=== PATIENT | female | born 1995 | race Caucasian/White ===

== ENCOUNTER 2016-10-04 23:36 | Emergency (ER) | payer OTHER, MEDICAID ==
[2016-10-05 00:02] VITALS: BP 156/92
[2016-10-05 00:27] LABS: Basophils % (Auto) 0.5 % (0.0-1.8); Eosinophils % (Auto) 1.4 % (0.0-4.3); Hemoglobin 10.8 gm/dl (10.1-14.3); Mean Corpuscular HGB Conc 31 % (30-34); Mean Corpuscular Volume 84 fl (79-97); Platelet Count 302 K/mm3 (140-440); Red Blood Count 4.18 M/mm3 (3.65-5.03); Red Cell Distribution Width 14.5 % (13.2-15.2); White Blood Count 11.1 K/mm3 (4.5-11.0)
[2016-10-05 00:28] LABS: Mean Corpuscular Hemoglobin 26 pg (28-32)
[2016-10-05 04:04] LABS: Bacteria,Urine 1+ /HPF (Negative); Bilirubin,Urine NEG (Negative); Blood,Urine LG (Negative); Ketones,Urine NEG (Negative); Leukocyte Esterase,Urine NEG (Negative); Mucus,Urine FEW /HPF; Nitrite,Urine NEG (Negative); Protein,Urine <15 mg/dL mg/dL (Negative); Urobilinogen,Urine < 2.0 mg/dL (<2.0)
--- NOTE | 2016-10-07 21:54 | ED Elopement Review ---
ED Pt Elopement review - Results review Lab results: Laboratory Tests 10/05/16 10/05/16 10/05/16 00:09 00:09 00:09 WBC 11.1 H RBC 4.18 Hgb 10.8 Hct 35.0 MCV 84 MCH 26 L MCHC 31 RDW 14.5 Plt Count 302 Lymph % (Auto) 23.4 [place] % (Auto) 4.5 Eos % (Auto) 1.4 Baso % (Auto) 0.5 Lymph # 2.6 [place] # 0.5 Eos # 0.2 Baso # 0.1 Seg Neutrophils % 70.2 H Seg Neutrophils # 7.8 H HCG, Quant < 2 Urine Color Urine Turbidity Urine pH Ur Specific [place] Urine Protein Urine Glucose (UA) Urine Ketones Urine Blood Urine Nitrite Urine Bilirubin Urine Urobilinogen Ur Leukocyte Esterase Urine WBC (Auto) Urine RBC (Auto) U Epithel Cells (Auto) Urine Bacteria (Auto) Urine Mucus Blood Type A POSITIVE Antibody Screen TNR DEMIAN Antibody Screen Negative 10/05/16 03:29 WBC RBC Hgb Hct MCV MCH MCHC RDW Plt Count Lymph % (Auto) [place] % (Auto) Eos % (Auto) Baso % (Auto) Lymph # [place] # Eos # Baso # Seg Neutrophils % Seg Neutrophils # HCG, Quant Urine Color Straw Urine Turbidity Clear Urine pH 6.0 Ur Specific [place] 1.003 Urine Protein <15 mg/dl Urine Glucose (UA) Neg Urine Ketones Neg Urine Blood Lg Urine Nitrite Neg Urine Bilirubin Neg Urine Urobilinogen < 2.0 Ur Leukocyte Esterase Neg Urine WBC (Auto) 1.0 Urine RBC (Auto) 2.0 U Epithel Cells (Auto) 1.0 Urine Bacteria (Auto) 1+ Urine Mucus Few Blood Type Antibody Screen DEMIAN Antibody Screen - Call Back decision Pt Call Back Decision: No action required
== END 2016-10-05 00:59 | disposition left against medical advice (07) ==
LOC: ED 23:36
DX: N93.8 Other specified abnormal uterine and vaginal bleeding (principal); Z53.21 Procedure and treatment not carried out due to patient leaving prior to being seen by health care provider
CPT/HCPCS: 36415; 81001; 84702; 85025; 86850; 86900; 86901

== ENCOUNTER 2016-12-02 20:09 | Emergency (ER) | payer MEDICAID, OTHER ==
[2016-12-02 21:45] VITALS: BP 142/88
[2016-12-02 22:21] LABS: Anion Gap 18 mmol/L; Blood Urea Nitrogen 7 mg/dL (7-17); Calcium 8.8 mg/dL (8.4-10.2); Carbon Dioxide 23 mmol/L (22-30); Chloride 103.3 mmol/L (98-107); Glucose 90 mg/dL (65-100); Potassium 4.5 mmol/L (3.6-5.0); Sodium 140 mmol/L (137-145)
[2016-12-02 22:42] LABS: Basophils % (Auto) 0.4 % (0.0-1.8); Eosinophils % (Auto) 1.8 % (0.0-4.3); Hematocrit 39.3 % (30.3-42.9); Hemoglobin 12.3 gm/dl (10.1-14.3); Mean Corpuscular HGB Conc 31 % (30-34); Mean Corpuscular Volume 79 fl (79-97); Platelet Count 368 K/mm3 (140-440); Red Blood Count 4.99 M/mm3 (3.65-5.03); Red Cell Distribution Width 17.1 % (13.2-15.2)
[2016-12-02 22:47] LABS: Mean Corpuscular Hemoglobin 25 pg (28-32)
== END 2016-12-03 00:10 | disposition left against medical advice (07) ==
LOC: ED 20:09
DX: R20.0 Anesthesia of skin (principal); Z53.21 Procedure and treatment not carried out due to patient leaving prior to being seen by health care provider
CPT/HCPCS: 36415; 80048; 84703; 85025

== ENCOUNTER 2017-03-13 10:58 | Emergency (ER) | payer MEDICAID ==
--- NOTE | 2017-03-13 11:24 | Emergency Department Report ---
Chief Complaint: Vaginal Bleeding Stated Complaint: VAGINAL DISCHARGE/MUCUS/BLOOD - HPI History of Present Illness: 22-year-old female past medical history hypertension presents with complaint of vaginal bleeding and lower abdominal cramping for 2 days. Patient currently has no care. Patient also complaining of sore throat and runny nose and malaise. - ROS Review of Systems: Currently last menstrual period 11/04/16 no care. URI symptoms 2-3 days, lower abdominal cramping and vaginal bleeding - Exam Vital Signs: Vital Signs 03/13/17 11:08 Temperature 98.3 F Pulse Rate 104 H Respiratory 20 Rate Blood Pressure 133/79 O2 Sat by Pulse 98 Oximetry Physical Exam: Some tonsillar erythema, obese abdomen MSE screening note: Focused history and physical exam performed. Due to findings the following was ordered: Screening Assessment/Plan/Differential Dx: Vaginal bleeding and cramping during , URI symptoms 1- This initial assessment/diagnostic orders/clinical plan/ treatment(s) is/are subject to change based on pt's health status, clinical progression and re- assessment by fellow clinical providers in the ED. Further treatment and workup at subsequent clinical provers discretion. Patient/guardians urged not to elope from ED as their condition may be serious if not clinically assessed and managed. 2-flu and strep swab sent 3-ultrasound transvaginal for , hCG level, basic labs,T&S 4-pt to be seen in main ED ED Disposition for MSE Condition: Stable
[2017-03-13 11:51] LABS: Basophils % (Auto) 0.5 % (0.0-1.8); Eosinophils % (Auto) 0.2 % (0.0-4.3); Hematocrit 36.1 % (30.3-42.9); Hemoglobin 11.8 gm/dl (10.1-14.3); Mean Corpuscular HGB Conc 33 % (30-34); Mean Corpuscular Volume 78 fl (79-97); Platelet Count 331 K/mm3 (140-440); Red Blood Count 4.61 M/mm3 (3.65-5.03); Red Cell Distribution Width 17.9 % (13.2-15.2); White Blood Count 11.9 K/mm3 (4.5-11.0)
[2017-03-13 12:00] LABS: Mean Corpuscular Hemoglobin 26 pg (28-32)
[2017-03-13 12:06] LABS: Anion Gap 21 mmol/L; BUN/Creatinine Ratio 23; Blood Urea Nitrogen 7 mg/dL (7-17); Calcium 8.9 mg/dL (8.4-10.2); Carbon Dioxide 18 mmol/L (22-30); Chloride 101.8 mmol/L (98-107); Glucose 90 mg/dL (65-100); Potassium 4.2 mmol/L (3.6-5.0); Sodium 137 mmol/L (137-145)
[2017-03-13 12:34] LABS: Bilirubin,Urine NEG (Negative); Blood,Urine NEG (Negative); Ketones,Urine NEG (Negative); Leukocyte Esterase,Urine NEG (Negative); Nitrite,Urine NEG (Negative); Protein,Urine <15 mg/dL mg/dL (Negative); Urobilinogen,Urine < 2.0 mg/dL (<2.0)
--- NOTE | 2017-03-13 13:38 | Emergency Department Report ---
HPI - General Chief Complaint: Vaginal Bleeding Time Seen by Provider: 03/13/17 12:19 - HPI HPI: This is a 22-year-old female presents to the emergency department with 2 complaints. First, the patient says that she has been having a few days of some bloody mucousy discharge and this is even more concerning to her as she is currently . She says up with this she is with 5 live children. She has not seen the SENIOR FACILITIES MANAGER yet but plans to follow up with [facility]. She is taking vitamins but has not taken anything specifically for her symptoms. Patient also complains that she developed some midsternal, nonradiating, sharp chest pains that started while she was in court today. She denies any shortness of breath, back pain, fever, nausea, vomiting or diaphoresis. She says that she has a history of some hypertension. No recent travel or sick contacts at home. ED Past Medical Hx - Past Medical History Previous Medical History?: Yes Hx Hypertension: Yes (with preg) Hx Heart Attack/AMI: No Hx Congestive Heart Failure: No Hx Diabetes: No Hx Deep Vein Thrombosis: No Hx Liver Disease: No Hx Renal Disease: No Hx Sickle Cell Disease: No Hx Seizures: No Hx Asthma: No Hx COPD: No Hx HIV: No Additional medical history: Vaginal dleivery x 5 - Surgical History Past Surgical History?: No - Social History Smoking Status: Former Smoker - Medications Home Medications: Home Medications Medication Instructions Recorded Confirmed Last Taken Type Pnv with Ca,No.72/Iron/FA 1 tab PO DAILY 10/08/13 10/07/15 10/04/15 History [ Plus Tablet] Ferrous Sulfate [Feosol 325 MG tab] 325 mg PO BID #60 tablet 10/13/13 10/07/15 3 Weeks Ago Rx ~09/13/15 Ibuprofen [Motrin 600 MG tab] 600 mg PO Q6H #30 tablet 10/13/13 10/07/15 2 Weeks Ago Rx ~09/20/15 Vit-Fe Fumar-FA [ 1 each PO QDAY #30 tablet 10/13/13 10/07/15 10/04/15 Rx Vitamin] Butalb/Acetamin/Caff 50-325-40 1 tab PO Q6H PRN #20 tablet 07/17/14 07/07/16 Unknown Rx [Fioricet] Nitrofurantoin [place]/M-Cryst 100 mg PO Q12HR 5 Days capsule 03/06/14 10/07/15 3 Days Ago Rx [Macrobid] ~10/01/15 ED Review of Systems ROS: Stated complaint: VAGINAL DISCHARGE/MUCUS/BLOOD Other details as noted in HPI Comment: All other systems reviewed and negative Constitutional: denies: chills, fever Eyes: denies: eye pain, eye discharge, vision change ENT: denies: ear pain, throat pain Respiratory: denies: cough, shortness of breath, wheezing Cardiovascular: chest pain. denies: palpitations Gastrointestinal: denies: abdominal pain, nausea, diarrhea Genitourinary: discharge. denies: dysuria Musculoskeletal: denies: back pain, joint swelling, arthralgia Skin: denies: rash, lesions Neurological: denies: headache, weakness, paresthesias Physical Exam - Physical Exam Vital Signs: Vital Signs 03/13/17 11:08 Temperature 98.3 F Pulse Rate 104 H Respiratory 20 Rate Blood Pressure 133/79 O2 Sat by Pulse 98 Oximetry Physical Exam: GENERAL: The patient is well-developed well-nourished. HENT: Normocephalic. Atraumatic. Patient has moist mucous membranes. EYES: Extraocular motions are intact. Pupils equal reactive to light bilaterally. NECK: Supple. Trachea is midline. CHEST/LUNGS: Clear to auscultation. There is no respiratory distress noted. There is some reproducible chest pain to palpation of the chest. HEART/CARDIOVASCULAR: Regular. There is no tachycardia. There is no murmur. ABDOMEN: Abdomen is soft, nontender. Patient has normal bowel sounds. There is no abdominal distention. SKIN: Skin is warm and dry. NEURO: The patient is awake, alert, and oriented. The patient is cooperative. The patient has no focal neurologic deficits. The patient has normal speech. MUSCULOSKELETAL: There is no tenderness or deformity. There is no limitation range of motion. There is no evidence of acute injury. : There is no vaginal bleeding or discharge seen in the vaginal vault. ED Course Vital Signs 03/13/17 11:08 Temperature 98.3 F Pulse Rate 104 H Respiratory 20 Rate Blood Pressure 133/79 O2 Sat by Pulse 98 Oximetry ED Medical Decision Making - Lab Data Result diagrams: 03/13/17 11:35 03/13/17 11:35 - EKG Data -: EKG Interpreted by Me EKG shows normal: sinus rhythm, axis, intervals, QRS complexes, ST-T waves Rate: normal - EKG Data When compared to previous EKG there are: previous EKG unavailable Interpretation: normal EKG - Radiology Data Radiology results: report reviewed OB ULTRASOUND History vaginal bleeding . Technique: Transabdominal ultrasound with Doppler interrogation. Gestation: Single Position: Transverse with head to maternal right Amniotic Fluid: Within normal limits Placenta: Posterior. Complete previa is identified. Placental Grade: 1 Heart Rate: 145 BPM Cervical length: 3.3 cm (Normal > 3 cm) HC/AC Ratio: 1.2 Cephalic Index: 76.6 Estimated Weight: 118 grams LMP: 11/04/16 Clinical age = 18 w 3 d EDC: 08/11/17 US Gest. Age = 15 w 2 d EDC: 09/02/17 IMPRESSION: Viable, single intrauterine as described. Placenta previa is identified. Transcribed By: TTR Dictated By: OMID FINLEY JR, MD Electronically Authenticated By: OMID FINLEY JR, MD Signed Date/Time: 03/13/17 1514 - Medical Decision Making 22-year-old female presents with a complaint of some bloody mucousy discharge while . She also complains of some chest pain that started just prior to presentation. The chest pain is reproducible and most likely consistent with costochondritis. EKG is normal without ST elevation MD, ischemia or dysrhythmia. It also was improved from earlier in the day. The patient was and since it appears consistent with costochondritis, I decided not to do a chest x-ray on her. Also, other the patient being , she is low suspicion for a pulmonary embolism. There is no hypoxia, only mild transient tachycardia and she is low on the well's score criteria. She had an ultrasound that showed a live intrauterine but did show a placenta previa. I discussed this with the patient and she knows that she is to follow-up with the SENIOR FACILITIES MANAGER. Vital signs stable ED course. Labs are otherwise unremarkable. Wet prep negative for BV and trichomoniasis. We will wait on the gonorrhea and chlamydia but there is low suspicion as patient does not have any significant discharge. - Differential Diagnosis costochondritis, , miscarriage, BV, trichomoniasis Critical Care Time: No Critical care attestation.: If time is entered above; I have spent that time in minutes in the direct care of this critically ill patient, excluding procedure time. ED Disposition Clinical Impression: Costochondritis, Threatened miscarriage Qualifiers: Weeks of gestation: 13 weeks Qualified Code(s): Z3A.13 - 13 weeks gestation of Placenta previa Qualifiers: Trimester: first trimester Qualified Code(s): O44.01 - Complete placenta previa NOS or without hemorrhage, first trimester Disposition: TO HOME OR SELFCARE Is pt being admited?: No Condition: Stable Instructions: Threatened Miscarriage (ED), (ED), Costochondritis (ED) Additional Instructions: Please follow-up with your SENIOR FACILITIES MANAGER service in the next few days. Return to the emergency department with any vaginal bleeding, sharp and/or severe abdominal/ pelvic pain, any development of fever, any worsening of your chest pains or any acute distress. Referrals: [facility] [Provider Group] - 3-5 Days Time of Disposition: 17:30
--- NOTE | 2017-03-13 15:18 | Ultrasound Report ---
OB ULTRASOUND History vaginal bleeding . Technique: Transabdominal ultrasound with Doppler interrogation. Gestation: Single Position: Transverse with head to maternal right Amniotic Fluid: Within normal limits Placenta: Posterior. Complete previa is identified. Placental Grade: 1 Heart Rate: 145 BPM Cervical length: 3.3 cm (Normal > 3 cm) HC/AC Ratio: 1.2 Cephalic Index: 76.6 Estimated Weight: 118 grams LMP: 11/04/16 Clinical age = 18 w 3 d EDC: 08/11/17 US Gest. Age = 15 w 2 d EDC: 09/02/17 IMPRESSION: Viable, single intrauterine as described. Placenta previa is identified.
[2017-03-13 16:39] VITALS: BP 124/81
== END 2017-03-13 17:44 | disposition home or self-care (01) ==
LOC: ED 10:58
DX: O20.0 Threatened abortion (principal); O44.01 Complete placenta previa NOS or without hemorrhage, first trimester; M94.0 Chondrocostal junction syndrome [Tietze]; Z3A.13 13 weeks gestation of pregnancy; I10 Essential (primary) hypertension; Z87.891 Personal history of nicotine dependence
CPT/HCPCS: 36415; 76805; 80048; 81001; 84484; 84702; 85025; 86850; 86900; 86901; 87086; 87116; 87210; 87400; 87430; 87591; 93005; 93010

== ENCOUNTER 2017-05-26 16:33 | Outpatient (CLI) | payer MEDICAID ==
[2017-05-26 16:54] VITALS: BP 138/73
[2017-05-26] MEDS ORDERED: LACTATED RINGERS 500 ML IV ONE (17:00)
[2017-05-26] MEDS ORDERED: LACTATED RINGERS 1,000 ML IV SCH (18:00)
[2017-05-26 18:17] LABS: Bilirubin,Urine NEG (Negative); Blood,Urine NEG (Negative); Color,Urine Yellow (Yellow); Protein,Urine <15 mg/dL mg/dL (Negative); RBC,Urine < 1.0 /HPF (0.0-6.0); WBC,Urine < 1.0 /HPF (0.0-6.0)
--- NOTE | 2017-05-26 20:49 | Ultrasound Report ---
FINAL REPORT EXAM: US OB CLINICAL INDICATIONS: cervical length FINDINGS: Real-time ultrasound of the pelvis was performed with large attention to the cervix. Cervical length was 3.4 cm. cardiac activity is present at 145 beats per minute. IMPRESSION: CERVICAL LENGTH 3.4 CM
== END 2017-05-26 19:50 | disposition home or self-care (01) ==
LOC: TRG 16:33
PROVIDERS: ATTEND Obstetrics & Gynecology
DX: O47.02 False labor before 37 completed weeks of gestation, second trimester (principal); Z3A.26 26 weeks gestation of pregnancy
CPT/HCPCS: 59025; 76815; 81001; 96360; J7120

== ENCOUNTER 2017-06-08 11:29 | Outpatient (CLI) | payer MEDICAID ==
[2017-06-08] MEDS ORDERED: CELESTONE SOLUSPAN IM ONE (11:50)
== END 2017-06-08 12:00 | disposition home or self-care (01) ==
LOC: TRG 11:29
PROVIDERS: ATTEND Obstetrics & Gynecology
DX: O47.02 False labor before 37 completed weeks of gestation, second trimester (principal); Z3A.27 27 weeks gestation of pregnancy
CPT/HCPCS: 96372; J0702

== ENCOUNTER 2017-06-09 12:09 | Outpatient (CLI) | payer MEDICAID ==
[2017-06-09] MEDS ORDERED: LACTATED RINGERS 500 ML IV ONE (12:19)
[2017-06-09 12:51] VITALS: BP 124/66
[2017-06-09] MEDS ORDERED: CELESTONE SOLUSPAN IM ONE (13:00)
== END 2017-06-09 13:22 | disposition home or self-care (01) ==
LOC: TRG 12:09
PROVIDERS: ATTEND Obstetrics & Gynecology
DX: O47.02 False labor before 37 completed weeks of gestation, second trimester (principal); Z3A.27 27 weeks gestation of pregnancy
CPT/HCPCS: 59025; 96372; J0702

== ENCOUNTER 2017-07-01 11:47 | Outpatient (CLI) | payer MEDICAID ==
[2017-07-01] MEDS ORDERED: LACTATED RINGERS 500 ML IV ONE (11:55)
[2017-07-01 12:09] VITALS: BP 119/65
[2017-07-01 12:47] LABS: Bilirubin,Urine NEG (Negative); Blood,Urine NEG (Negative); Color,Urine Amber (Yellow); Mucus,Urine FEW /HPF
--- NOTE | 2017-07-01 15:22 | Ultrasound Report ---
FINAL REPORT EXAM: US OB BPP WO NON-STRESS HISTORY: SROM/fall TECHNIQUE: Sonographic biophysical profile performed PRIORS: None. FINDINGS: There is a single live intrauterine of approximately 31 weeks 0 days according to the provided REBEL of 09/02/2017. position is cephalic. The placenta is posterior. Amniotic fluid volume is normal with MARIAN of 13.0 cm. cardiac activity is measured at 144 bpm. biophysical profile: breathing movements: 2 Gross body movements: 2 tone: 2 Amniotic fluid volume: 2 Score: 8 out of 8. IMPRESSION: Normal biophysical profile scoring 8 out of 8
--- NOTE | 2017-07-01 15:25 | Ultrasound Report ---
FINAL REPORT EXAM: US OB LIMITED HISTORY: SROM/fall TECHNIQUE: Limited obstetrical ultrasound performed. PRIORS: None. FINDINGS: There is a single live intrauterine . Gestational age is approximately 31 weeks 0 days according to REBEL of 09/02/2017. position is cephalic. Amniotic fluid volume is normal with MARIAN of 13.0 cm. Placenta is posterior. There is no placenta previa seen. There is no placental abruption seen. Survey of anatomy not performed. Cervical length not evaluated. IMPRESSION: No evidence of placental abruption seen. Single live intrauterine of approximately 31 weeks 0 days with corresponding REBEL of 09/02/2017.
== END 2017-07-01 15:04 | disposition home or self-care (01) ==
LOC: TRG 11:47
PROVIDERS: ATTEND Obstetrics & Gynecology
DX: O47.03 False labor before 37 completed weeks of gestation, third trimester (principal); O26.893 Other specified pregnancy related conditions, third trimester; W19.XXXA Unspecified fall, initial encounter; Z3A.31 31 weeks gestation of pregnancy; Y93.89 Activity, other specified; Y92.89 Other specified places as the place of occurrence of the external cause; Y99.8 Other external cause status
CPT/HCPCS: 59025; 76815; 76819; 81001

== ENCOUNTER 2017-08-07 21:46 | Outpatient (CLI) | payer MEDICAID ==
[2017-08-08] MEDS ORDERED: VISTARIL PO ONE (00:43)
== END 2017-08-08 00:43 | disposition home or self-care (01) ==
LOC: TRG 21:46
PROVIDERS: ATTEND Obstetrics & Gynecology
DX: O47.03 False labor before 37 completed weeks of gestation, third trimester (principal); Z3A.36 36 weeks gestation of pregnancy
CPT/HCPCS: 59025; Q0177

== ENCOUNTER 2017-08-10 15:46 | Outpatient (CLI) | payer MEDICAID ==
[2017-08-10 16:48] VITALS: BP 118/61
== END 2017-08-10 17:35 | disposition home or self-care (01) ==
LOC: TRG 15:46
PROVIDERS: ATTEND Obstetrics & Gynecology
DX: O46.93 Antepartum hemorrhage, unspecified, third trimester (principal); O62.9 Abnormality of forces of labor, unspecified; Z3A.36 36 weeks gestation of pregnancy
CPT/HCPCS: 59025

== ENCOUNTER 2017-08-12 10:57 | Inpatient (IN) | payer MEDICAID ==
[2017-08-12] MEDS ORDERED: LACTATED RINGERS 2,000 ML ONE (12:53)
[2017-08-12] MEDS ORDERED: Fluarix Quad 2017-2018(36 MOS+ IM ONE (13:29)
[2017-08-12] MEDS ORDERED: XYLOCAINE 2% INFILTRATI ONE (13:50)
[2017-08-12] MEDS ORDERED: ZOFRAN IV PRN ×2 (13:50→17:55)
[2017-08-12] MEDS ORDERED: BRETHINE IVP PRN (13:50)
[2017-08-12] MEDS ORDERED: MINERAL OIL PO PRN (13:50)
[2017-08-12] MEDS ORDERED: PHENERGAN PO PRN ×2 (13:50→17:55)
[2017-08-12] MEDS ORDERED: BRETHINE SUB-Q PRN (13:50)
[2017-08-12] MEDS ORDERED: ePHEDrine SULFATE IV PRN ×2 (13:50→15:01)
[2017-08-12] MEDS ORDERED: STADOL IV PRN (13:50)
[2017-08-12] MEDS ORDERED: LACTATED RINGERS 1,000 ML IV SCH (14:00)
[2017-08-12] MEDS ORDERED: PITOCin/NS 30 UNIT/500ML 30 UNITS/500 ML BAG IV SCH (14:00)
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
[2017-08-12 14:26] LABS: Hematocrit 37.7 % (30.3-42.9); Hemoglobin 11.9 gm/dl (10.1-14.3); Mean Platelet Volume 9.1 fl (6-12); Red Blood Count 4.43 M/mm3 (3.65-5.03); Red Cell Distribution Width 18.2 % (13.2-15.2)
[2017-08-12] MEDS ORDERED: NARCAN 2 MG/2 ML IV PRN (15:01)
[2017-08-12] MEDS ORDERED: fentaNYL-BUPIV 2 MCG/ML-0.125% 200 MCG/100 ML BAG EPIDURAL SCH (16:00)
[2017-08-12] MEDS: PITOCin/NS 20 UNIT/1000ML DRIP 20 UNITS/1,000 ML BAG IV SCH ×2 (17:45→19:21)
[2017-08-12] MEDS ORDERED: LANSINOH TP PRN (17:55)
[2017-08-12] MEDS ORDERED: TUCKS PAD TP PRN (17:55)
[2017-08-12] MEDS ORDERED: MILK OF MAGNESIA PO PRN (17:55)
[2017-08-12] MEDS ORDERED: TYLENOL PO PRN (17:55)
[2017-08-12] MEDS ORDERED: BENADRYL PO PRN (17:55)
[2017-08-12] MEDS ORDERED: DULCOLAX PR PRN (17:55)
[2017-08-12] MEDS ORDERED: SODIUM CHLORIDE FLUSH SYRINGE 10 ML IV NR (18:00)
--- NOTE | 2017-08-12 18:03 | Procedure Note ---
OB Delivery Note - Delivery Date of Delivery: 08/12/17 (17:40) Surgeon: JANET DE LEON (PRISCILLA) Estimated blood loss: 100cc - Vaginal Delivery presentation: vertex Delivery position: OA Intrapartum events: none Delivery induction: none Delivery augmentation: pitocin Delivery monitor: external FHT, external uterine Route of delivery: Delivery placenta: spontaneous Delivery cord: nuchal cord (x1 tight, body cord loose), 3 umbilical vessels Episiotomy: none Delivery laceration: none Anesthesia: epidural Delivery comments: viable male infant GISELL position, tight nuchal x1, loose body cord, delivered intact via somersault maneuver, over intact perineum under epidural anesthesia at 17:40. Infant placed on mothers abdomen. Delayed cord clamping. Cord then cut by female family member at bedside. Spontaneous [place] delivery of intact placenta at 17:46. 3VC. No tears or lacerations. FF@U-2. Bleeding small. EBL 100. and mother left in stable condition. - Infant A at 1 minute: 8 at 5 minutes: 9 (2707 grams, 5lbs 15oz) Infant Gender: Male
[2017-08-12] MEDS: MOTRIN PO SCH (19:03)
[2017-08-13] MEDS: MOTRIN PO SCH ×3 (01:58→20:49)
[2017-08-13 06:20] LABS: Hematocrit 29.2 % (30.3-42.9); Hemoglobin 9.9 gm/dl (10.1-14.3)
[2017-08-13] MEDS: NORCO 5/325 PO PRN (08:50)
--- NOTE | 2017-08-13 10:35 | Progress Note ---
Assessment and Plan A: PP Day #1 Stable P: Follow Routine orders Depo Provera prior to discharge Plans Tubal D/C home today RTO in 3 Weeks Subjective - Subjective Date of service: 08/13/17 Patient reports: appetite normal, voiding normally, pain well controlled, flatus , bowel movement, ambulating normally [place]: doing well, bottle feeding Objective - Vital Signs Latest vital signs: Vital Signs Temp Pulse Resp BP BP Pulse Ox 08/13/17 08:30 97.8 F 80 18 115/63 98 08/13/17 03:41 98.4 F 86 18 124/53 08/13/17 00:00 98.9 F 84 18 108/57 08/12/17 20:50 98.2 F 96 H 18 114/57 08/12/17 19:23 98.2 F 88 18 113/65 113/65 08/12/17 18:31 100 H 84 08/12/17 18:26 87 100 08/12/17 18:21 93 H 100 08/12/17 18:20 85 101/61 08/12/17 18:16 85 100 08/12/17 18:11 87 114/60 100 08/12/17 18:07 97.8 F 18 08/12/17 18:06 103 H 100 08/12/17 18:01 109 H 100 08/12/17 17:56 112 H 100 08/12/17 17:51 105 H 100 08/12/17 17:50 99 H 94 08/12/17 17:48 100 H 130/60 08/12/17 17:41 104 H 83 L 08/12/17 17:36 97 H 92 08/12/17 17:31 110 H 100 08/12/17 17:30 111 H 119/61 87 08/12/17 17:26 100 H 100 08/12/17 17:21 95 H 100 08/12/17 17:18 103 H 76 L 08/12/17 17:16 99 H 100 08/12/17 17:11 105 H 100 08/12/17 17:06 91 H 100 08/12/17 17:01 89 100 08/12/17 16:56 102 H 98 08/12/17 16:51 85 100 08/12/17 16:46 79 99 08/12/17 16:41 112 H 99 08/12/17 16:38 80 125/81 0518 16:36 93 H 100 18 16:31 107 H 98 18 16:26 112 H 98 18 16:21 105 H 98 18 16:17 86 113/56 18 16:16 99 H 97 08/12/17 16:15 93 H 153/62 08/12/17 16:12 96 H 102/48 08/12/17 16:11 104 H 98/47 87 08/12/17 16:07 116 H 126/53 08/12/17 16:06 94 H 92 08/12/17 16:03 87 121/60 08/12/17 16:02 91 H 94 08/12/17 16:01 108 H 123/58 0 L 08/12/17 15:20 92 H 97 08/12/17 15:18 102 H 94 08/12/17 15:14 96 H 96 08/12/17 15:09 87 98 08/12/17 15:04 80 98 08/12/17 14:59 81 97 18 14:54 80 96 08/12/17 14:49 80 97 18 14:44 87 97 18 14:39 88 97 08/12/17 14:34 71 96 08/12/17 14:29 78 98 18 14:24 89 100 18 14:19 99 H 100 18 14:14 109 H 100 08/12/17 14:09 98 H 100 08/12/17 14:04 105 H 99 08/12/17 13:57 97 H 100 18 13:52 88 100 18 13:47 89 99 0518 13:42 94 H 100 18 13:37 91 H 100 0518 13:32 90 100 18 13:27 96 H 128/61 100 0518 13:22 97.8 F 80 20 128/61 100 Intake and Output 05//18 05/14/18 05/1418 22:59 06:59 14:59 Intake Total 156.25 240 Output Total 150 1000 Balance 6.25 -760 Intake: IV 156.25 PITOCin/NS 20 UNIT/1000ML 156.25 DRIP 20 units In 1,000 ml @ 125 mls/hr IV DIRECT SHANTA Rx#:[id number] Oral 240 Output: Urine 150 1000 Void 150 1000 Other: Total, Intake Amount 240 Total, Output Amount 150 600 # Voids Void 3 Estimated Blood Loss 100 - Exam Breasts: Present: normal Cardiovascular: Present: Regular rate Lungs: Present: Clear to auscultation, Normal air movement Abdomen: Present: normal appearance, soft, normal bowel sounds Uterus: Present: normal, firm, fundal height below umbilicus Extremities: Present: normal - Labs Labs: Abnormal lab results 08/12/17 08/13/17 Range/Units 12:55 05:46 WBC 12.5 H (4.5-11.0) K/mm3 Hgb 9.9 L (10.1-14.3) gm/dl Hct 29.2 L D (30.3-42.9) % MCH 27 L (28-32) pg RDW 18.2 H (13.2-15.2) %
--- NOTE | 2017-08-13 10:36 | Discharge Summary ---
Providers - Providers Date of Admission: 08/12/17 11:36 Date of discharge: 08/13/17 Attending physician: ZANE STEVENSON MD Primary care physician: ZANE STEVENSON MD Hospitalization Reason for admission: active labor Delivery: Episiotomy: none Laceration: none Other procedures: none complications: none Discharge diagnosis: IUP at term delivered [place] baby: male Condition at discharge: Good Disposition: DC-01 TO HOME OR SELFCARE Plan - Provider Discharge Summary Activity: routine, no sex for 6 weeks, no heavy lifting 4 weeks, no strenuous exercise Diet: routine Instructions: routine Additional instructions: [] Smoking cessation referral if applicable(refer to patient education folder for contact #) [] Refer to [facility]'s [facility] Booklet Call your doctor immediately for: * Fever > 100.5 * Heavy vaginal bleeding ( >1 pad per hour) * Severe persistent headache * Shortness of breath * Reddened, hot, painful area to leg or breast * Drainage or odor from incision. * Keep incision clean and dry at all times and follow doctor's instructions regarding bathing/showering - Follow up plan Follow up: ZANE STEVENSON MD [Primary Care Provider] - 09/03/17
[2017-08-13] MEDS ORDERED: DEPO-PROVERA (CONTRACEPTION) IM ONE (11:32)
[2017-08-13 19:34] LABS: Benzodiazepines Screen,Urine PRESUMPTIVE NEGATIVE; Cannabinoid Screen,Urine PRESUMPTIVE NEGATIVE; Cocaine Screen,Urine PRESUMPTIVE NEGATIVE; Methadone Screen,Urine PRESUMPTIVE NEGATIVE; Opiate Screen,Urine PRESUMPTIVE NEGATIVE
[2017-08-13 19:58] LABS: Amphetamine Screen,Urine PRESUMPTIVE POSITIVE
[2017-08-14] MEDS: MOTRIN PO SCH ×2 (04:01→11:43)
[2017-08-14] MEDS: NORCO 5/325 PO PRN ×2 (05:33→11:44)
[2017-08-14 18:25] VITALS: BP 128/80
== END 2017-08-14 18:36 | disposition home or self-care (01) | DRG 774 ==
LOC: TRG 10:57 → LD 11:36 → OB 21:12
PROVIDERS: ADMIT Obstetrics & Gynecology; ATTEND Obstetrics & Gynecology
PROC: 10E0XZZ Delivery of Products of Conception, External Approach (ICD-10-PCS; principal; 2017-08-12)
PROC: 3E0R3BZ Introduction of Anesthetic Agent into Spinal Canal, Percutaneous Approach (ICD-10-PCS; 2017-08-12)
PROC: 00HU33Z Insertion of Infusion Device into Spinal Canal, Percutaneous Approach (ICD-10-PCS; 2017-08-12)
PROC: 3E0234Z Introduction of Serum, Toxoid and Vaccine into Muscle, Percutaneous Approach (ICD-10-PCS; 2017-08-12)
DX: O69.1XX0 Labor and delivery complicated by cord around neck, with compression, not applicable or unspecified (principal); O98.32 Other infections with a predominantly sexual mode of transmission complicating childbirth; O99.214 Obesity complicating childbirth; E66.01 Morbid (severe) obesity due to excess calories; Z3A.37 37 weeks gestation of pregnancy; Z37.0 Single live birth; Z64.1 Problems related to multiparity; Z68.43 Body mass index [BMI] 50.0-59.9, adult; Z23 Encounter for immunization; A60.00 Herpesviral infection of urogenital system, unspecified; O16.4 Unspecified maternal hypertension, complicating childbirth
CPT/HCPCS: 36415; 80307; 85014; 85018; 85027; 86592; 86850; 86900; 86901; 90686; J0595; J1050; J2590; J7120

== ENCOUNTER 2017-08-15 10:53 | Emergency (ER) | payer MEDICAID ==
[2017-08-15 11:49] VITALS: BP 124/78
== END 2017-08-15 14:15 | disposition left against medical advice (07) ==
LOC: ED 10:53
DX: R51 Headache (principal); Z87.891 Personal history of nicotine dependence; Z53.21 Procedure and treatment not carried out due to patient leaving prior to being seen by health care provider

== ENCOUNTER 2017-10-25 15:56 | Emergency (ER) | payer MEDICAID, OTHER ==
--- NOTE | 2017-10-25 16:34 | Emergency Department Report ---
ED General Adult HPI - General Chief complaint: Altered Mental Status Stated complaint: ALTERED MENTAL STATE Time Seen by Provider: 10/25/17 16:15 Source: patient, EMS Mode of arrival: Stretcher Limitations: Altered Mental Status - History of Present Illness Initial comments: [facility] for altered mental status. Patient states she was arrested today for a domestic issue and prior to [facility] to the [facility] she became very emotional and states when she got out of the police car she passed out. Patient denies any chest pain, abdominal pain, or headache. Patient states she feels normal now. -: Sudden Radiation: non-radiation Severity scale (0 -10): 0 Consistency: now resolved Improves with: none Worsens with: none Associated Symptoms: denies other symptoms Treatments Prior to Arrival: none - Related Data Home Medications Medication Instructions Recorded Confirmed Last Taken Aspirin [Aspirin BABY CHEW TAB] 81 mg PO DAILY 08/12/17 08/12/17 08/11/17 08:00 1 Labetalol HCl 100 tab PO BID 08/12/17 08/12/17 08/11/17 08:00 100 TAB Previous Rx's Medication Instructions Recorded Last Taken Type Vit-Fe Fumar-FA [ 1 each PO QDAY #30 tablet 10/13/13 08/11/17 08:00 Rx Vitamin] 1 EACH Allergies Allergy/AdvReac Type Severity Reaction Status Date / Time No Known Allergies Allergy Verified 08/23/14 14:08 ED Review of Systems ROS: Stated complaint: ALTERED MENTAL STATE Other details as noted in HPI Comment: All other systems reviewed and negative Constitutional: denies: chills, fever Eyes: denies: eye pain, eye discharge, vision change ENT: denies: ear pain, throat pain Respiratory: denies: cough, shortness of breath, wheezing Cardiovascular: denies: chest pain, palpitations Endocrine: no symptoms reported Gastrointestinal: denies: abdominal pain, nausea, diarrhea Genitourinary: denies: urgency, dysuria, discharge Musculoskeletal: denies: back pain, joint swelling, arthralgia Skin: denies: rash, lesions Neurological: denies: headache, weakness, paresthesias Psychiatric: denies: anxiety, depression Hematological/Lymphatic: denies: easy bleeding, easy bruising ED Past Medical Hx - Past Medical History Previous Medical History?: No Hx Hypertension: No Hx Heart Attack/AMI: No Hx Congestive Heart Failure: No Hx Diabetes: No Hx Deep Vein Thrombosis: No Hx Liver Disease: No Hx Renal Disease: No Hx Sickle Cell Disease: No Hx Seizures: No Hx Asthma: No Hx COPD: No Hx HIV: Yes Additional medical history: Vaginal dleivery x 6 - Social History Smoking Status: Unknown if ever smoked - Medications Home Medications: Home Medications Medication Instructions Recorded Confirmed Last Taken Type Vit-Fe Fumar-FA [ 1 each PO QDAY #30 tablet 10/13/13 08/12/17 08/11/17 08:00 Rx Vitamin] 1 EACH Aspirin [Aspirin BABY CHEW TAB] 81 mg PO DAILY 08/12/17 08/12/17 08/11/17 08:00 History 1 Labetalol HCl 100 tab PO BID 08/12/17 08/12/17 08/11/17 08:00 History 100 TAB ED Physical Exam - General Limitations: Altered Mental Status General appearance: alert, in no apparent distress, other (patient answers questions appropriately. Patient tells me she was born in [facility] moved to [place] in 2000. Patient is able to tell me her date of counting today month and year) - Head Head exam: Present: atraumatic, normocephalic - Eye Eye exam: Present: normal appearance, PERRL, EOMI - ENT ENT exam: Present: mucous membranes moist - Neck Neck exam: Present: normal inspection - Respiratory Respiratory exam: Present: normal lung sounds bilaterally. Absent: respiratory distress, wheezes, rales - Cardiovascular Cardiovascular Exam: Present: regular rate, normal rhythm. Absent: systolic murmur, diastolic murmur, rubs, gallop - GI/Abdominal GI/Abdominal exam: Present: soft, normal bowel sounds. Absent: distended, tenderness - Extremities Exam Extremities exam: Present: normal inspection - Back Exam Back exam: Present: normal inspection - Neurological Exam Neurological exam: Present: alert, oriented X3, CN II-XII intact, reflexes normal. Absent: motor sensory deficit - Psychiatric Psychiatric exam: Present: normal affect, normal mood - Skin Skin exam: Present: warm, dry, intact, normal color. Absent: rash - Other Other exam information: Patient is tearful on exam ED Course Vital Signs 10/25/17 10/25/17 16:45 16:50 Temperature 98.0 F 97.6 F Pulse Rate 104 H 106 H Respiratory 16 16 Rate Blood Pressure 128/85 116/68 [Right] O2 Sat by Pulse 100 Oximetry ED Medical Decision Making - Lab Data Result diagrams: 10/25/17 16:17 10/25/17 16:17 - EKG Data EKG shows normal: sinus rhythm Rate: tachycardia - EKG Data Interpretation: no acute changes - Medical Decision Making Discussed results with the patient Elevated white count is likely secondary to acute stress reaction Critical care attestation.: If time is entered above; I have spent that time in minutes in the direct care of this critically ill patient, excluding procedure time. ED Disposition Clinical Impression: Vasovagal episode, Acute stress reaction Disposition: DC-01 TO HOME OR SELFCARE Is pt being admited?: No Does the pt Need Aspirin: No Condition: Stable Instructions: Syncope (ED) Additional Instructions: Return if worse Referrals: PRIMARY CARE, [Primary Care Provider] - 3-5 Days HODA LOPEZ MD [Staff Physician] - 3-5 Days [facility] [Outside] - 3-5 Days Time of Disposition: 18:36
[2017-10-25 16:42] LABS: Basophils # (Auto) 0.1 K/mm3 (0.0-0.1); Basophils % (Auto) 0.5 % (0.0-1.8); Eosinophils # (Auto) 0.1 K/mm3 (0.0-0.4); Eosinophils % (Auto) 0.5 % (0.0-4.3); Hematocrit 36.9 % (30.3-42.9); Hemoglobin 11.5 gm/dl (10.1-14.3); Lymphocytes # (Auto) 3.1 K/mm3 (1.2-5.4); Lymphocytes % (Auto) 17.3 % (13.4-35.0); Mean Corpuscular HGB Conc 31 % (30-34); Mean Corpuscular Volume 81 fl (79-97); Monocytes # (Auto) 0.8 K/mm3 (0.0-0.8); Monocytes % (Auto) 4.3 % (0.0-7.3); Platelet Count 389 K/mm3 (140-440); Red Blood Count 4.55 M/mm3 (3.65-5.03); Red Cell Distribution Width 16.8 % (13.2-15.2)
[2017-10-25 16:43] LABS: Mean Corpuscular Hemoglobin 25 pg (28-32)
[2017-10-25 16:52] LABS: Alanine Aminotransferase 37 units/L (7-56); Albumin 4.2 g/dL (3.9-5); BUN/Creatinine Ratio 16; Blood Urea Nitrogen 8 mg/dL (7-17); Calcium 9.2 mg/dL (8.4-10.2); Hemolysis Index 28
--- NOTE | 2017-10-25 17:52 | Cat Scan Report ---
FINAL REPORT EXAM: CT HEAD/BRAIN WO CON HISTORY: Altered mental status TECHNIQUE: 2.5 millimeter axial images from the skullbase to the vertex. Comparison: None FINDINGS: There is no evidence of an acute intracranial process, intracranial hemorrhage or mass effect. The ventricles are normal size. The visualized portions of the orbits, paranasal and mastoid sinuses are unremarkable. There is no evidence of fracture. There is mild frontal scalp soft tissue swelling. IMPRESSION: 1. No evidence of an acute intracranial process, intracranial hemorrhage or mass effect. 2. Mild frontal scalp soft tissue swelling.
[2017-10-25 18:26] LABS: Bilirubin,Urine NEG (Negative); Blood,Urine NEG (Negative); Color,Urine Yellow (Yellow); Mucus,Urine FEW /HPF; Urobilinogen,Urine < 2.0 mg/dL (<2.0)
[2017-10-25 18:37] LABS: Benzodiazepines Screen,Urine PRESUMPTIVE NEGATIVE; Cannabinoid Screen,Urine PRESUMPTIVE NEGATIVE; Cocaine Screen,Urine PRESUMPTIVE NEGATIVE; Methadone Screen,Urine PRESUMPTIVE NEGATIVE; Opiate Screen,Urine PRESUMPTIVE NEGATIVE
[2017-10-25 19:04] LABS: Amphetamine Screen,Urine PRESUMPTIVE POSITIVE
[2017-10-25 19:08] VITALS: BP 124/67
== END 2017-10-25 19:15 | disposition home or self-care (01) ==
LOC: ED 15:56
DX: R55 Syncope and collapse (principal); F43.9 Reaction to severe stress, unspecified
CPT/HCPCS: 36415; 70450; 80053; 80307; 81001; 84443; 84703; 85025; 93005; 93010; 99285; G0480; 80320

== ENCOUNTER 2021-10-21 14:00 | Emergency (ER) | payer SELFPAY ==
[2021-10-21 14:43] VITALS: BP 135/60
[2021-10-21 16:03] LABS: Basophils % (Auto) 0.3 % (0.0-1.8); Eosinophils # (Auto) 0.1 K/mm3 (0.0-0.4); Eosinophils % (Auto) 0.5 % (0.0-4.3); Hemoglobin 13.2 gm/dl (10.1-14.3); Lymphocytes # (Auto) 2.5 K/mm3 (1.2-5.4); Lymphocytes % (Auto) 20.6 % (13.4-35.0); Mean Corpuscular HGB Conc 33 % (30-34); Mean Corpuscular Volume 87 fl (79-97); Monocytes # (Auto) 0.8 K/mm3 (0.0-0.8); Monocytes % (Auto) 6.6 % (0.0-7.3); Platelet Count 324 K/mm3 (140-440); Red Blood Count 4.61 M/mm3 (3.65-5.03); Red Cell Distribution Width 14.8 % (13.2-15.2)
[2021-10-21 16:22] LABS: Alanine Aminotransferase 16 units/L (7-56); Albumin 4.7 g/dL (3.9-5); Blood Urea Nitrogen 9 mg/dL (7-17); Calcium 9.2 mg/dL (8.4-10.2); Hemolysis Index 4
[2021-10-21 16:25] LABS: BUN/Creatinine Ratio 18
--- NOTE | 2021-10-21 17:12 | Emergency Department Report ---
ED General Adult HPI - General Chief complaint: Medical Clearance Stated complaint: HIGH BLOOD PRESSURE/DIZZY Source: patient Mode of arrival: Ambulatory Limitations: No Limitations - History of Present Illness Initial comments: Patient is a 26-year-old female with a history of morbid obesity, HIV and hypertension who presents to the ED with complaint of persistently elevated heart rate and palpitations after drinking energy drinks 6 hours ago. Patient also complains of persistent elevated blood pressure and admits that she has not taken her blood pressure medications in over 2 weeks. Patient denies fever, chills, nausea, vomiting, dizziness, syncope, shortness of breath, chest pain, neck pain, abdominal pain, back pain, neck pain, heavy lifting or diaphoresis or cough. MD Complaint: Elevated hypertension; palpitations -: hour(s) (8) Location: chest Radiation: non-radiation Severity scale (0 -10): 0 Consistency: constant Improves with: none Worsens with: none Associated Symptoms: denies other symptoms. denies: confusion, chest pain, cough, diaphoresis, fever/chills, headaches, loss of appetite, malaise, nausea/vomiting, rash, shortness of breath, syncope, weakness Treatments Prior to Arrival: none - Related Data Home Medications Medication Instructions Recorded Confirmed Last Taken Aspirin [Aspirin BABY CHEW TAB] 81 mg PO DAILY 08/12/17 08/12/17 08/11/17 08:00 1 Labetalol HCl 100 tab PO BID 08/12/17 08/12/17 08/11/17 08:00 100 TAB Previous Rx's Medication Instructions Recorded Last Taken Type Vit-Fe Fumar-FA [ 1 each PO QDAY #30 tablet 10/13/13 08/11/17 08:00 Rx Vitamin] 1 EACH Allergies Allergy/AdvReac Type Severity Reaction Status Date / Time No Known Allergies Allergy Verified 08/23/14 14:08 ED Review of Systems ROS: Stated complaint: HIGH BLOOD PRESSURE/DIZZY Other details as noted in HPI Constitutional: other (Elevated blood pressure). denies: chills, fever Eyes: denies: eye pain, eye discharge, vision change ENT: denies: ear pain, throat pain Respiratory: denies: cough, shortness of breath, wheezing Cardiovascular: palpitations. denies: chest pain Endocrine: no symptoms reported Gastrointestinal: denies: abdominal pain, nausea, vomiting, diarrhea Genitourinary: denies: urgency, dysuria, discharge Musculoskeletal: denies: back pain, joint swelling, arthralgia Skin: denies: rash, lesions Neurological: denies: headache, weakness, paresthesias Psychiatric: denies: anxiety, depression Hematological/Lymphatic: denies: easy bleeding, easy bruising ED Past Medical Hx - Past Medical History Previous Medical History?: Yes Hx Hypertension: Yes Hx Heart Attack/AMI: No Hx Congestive Heart Failure: No Hx Diabetes: No Hx Deep Vein Thrombosis: No Hx Liver Disease: No Hx Renal Disease: No Hx Sickle Cell Disease: No Hx Seizures: No Hx Asthma: No Hx COPD: No Hx HIV: Yes Additional medical history: Vaginal delivery x 6 - Social History Smoking Status: Unknown if ever smoked - Medications Home Medications: Home Medications Medication Instructions Recorded Confirmed Last Taken Type Vit-Fe Fumar-FA [ 1 each PO QDAY #30 tablet 10/13/13 08/12/17 08/11/17 08:00 Rx Vitamin] 1 EACH Aspirin [Aspirin BABY CHEW TAB] 81 mg PO DAILY 08/12/17 08/12/17 08/11/17 08:00 History 1 Labetalol HCl 100 tab PO BID 08/12/17 08/12/17 08/11/17 08:00 History 100 TAB ED Physical Exam - General Limitations: No Limitations General appearance: alert, in no apparent distress - Head Head exam: Present: atraumatic, normocephalic, normal inspection - Eye Eye exam: Present: normal appearance, PERRL, EOMI Pupils: Present: normal accommodation - ENT ENT exam: Present: normal exam, normal orophraynx, mucous membranes moist, TM's normal bilaterally, normal external ear exam - Neck Neck exam: Present: normal inspection, full ROM. Absent: tenderness - Respiratory Respiratory exam: Present: normal lung sounds bilaterally. Absent: respiratory distress, wheezes, rales, rhonchi, chest wall tenderness, accessory muscle use, decreased breath sounds, prolonged expiratory - Cardiovascular Cardiovascular Exam: Present: normal rhythm, tachycardia, normal heart sounds. Absent: systolic murmur, diastolic murmur, rubs, gallop - GI/Abdominal GI/Abdominal exam: Present: soft, normal bowel sounds. Absent: tenderness, guarding, rebound, hyperactive bowel sounds, mass - Extremities Exam Extremities exam: Present: normal inspection, full ROM, normal capillary refill. Absent: tenderness - Back Exam Back exam: Present: normal inspection, full ROM. Absent: tenderness, CVA tenderness (R), CVA tenderness (L), muscle spasm, paraspinal tenderness, vertebral tenderness - Neurological Exam Neurological exam: Present: alert, oriented X3, CN II-XII intact, normal gait, reflexes normal - Psychiatric Psychiatric exam: Present: normal affect, normal mood - Skin Skin exam: Present: warm, dry, intact, normal color. Absent: rash ED Course Vital Signs 10/21/21 14:40 Temperature 97.9 F Pulse Rate 116 H Respiratory 18 Rate Blood Pressure 135/60 [Left] O2 Sat by Pulse 97 Oximetry ED Medical Decision Making - Lab Data Result diagrams: 10/21/21 14:58 10/21/21 14:58 - Medical Decision Making This is a 26-year-old female with a history of morbid obesity, HIV and hypertension who presents to the ED with complaint of persistently elevated heart rate and palpitations after drinking energy drinks 6 hours ago. Patient a lso complains of persistent elevated blood pressure and admits that she has not taken her blood pressure medications in over 2 weeks. In the ED, patient is alert and oriented x3 and is not in any distress but anxious, tachycardic and afebrile in triage. All lab test results were reviewed and are all nonactionable. Patient however eloped from the ED before going for chest x-ray or being reevaluated. Patient left the ED AGAINST MEDICAL ADVICE and never returned. - Differential Diagnosis Uncontrolled HTN; Anxiety; PE; ACS; pneumonia Critical care attestation.: If time is entered above; I have spent that time in minutes in the direct care of this critically ill patient, excluding procedure time. ED Disposition Clinical Impression: Anxiety as acute reaction to exceptional stress, Intermittent palpitations Disposition: LEFT AGAINST MEDICAL ADVICE Is pt being admited?: No Does the pt Need Aspirin: No Condition: Undetermined Instructions: Generalized Anxiety Disorder, Adult, Palpitations, [id number] Referrals: [facility] [place] [Provider Group] - 3-5 Days Time of Disposition: 17:12 Print Language: KYRGYZ
== END 2021-10-21 19:08 | disposition left against medical advice (07) ==
LOC: ED 14:00
DX: F41.1 Generalized anxiety disorder (principal); F43.0 Acute stress reaction; R00.2 Palpitations; I10 Essential (primary) hypertension; Z21 Asymptomatic human immunodeficiency virus [HIV] infection status
CPT/HCPCS: 36415; 80053; 84484; 85025; 99282

== ENCOUNTER 2021-11-20 21:55 | Emergency (ER) | payer OTHER ==
[2021-11-21] MEDS ORDERED: ACETAMINOPHEN 500 MG TAB PO ONE (01:02)
[2021-11-21 01:31] LABS: Basophils # (Auto) 0.1 K/mm3 (0.0-0.1); Basophils % (Auto) 0.4 % (0.0-1.8); Eosinophils # (Auto) 0.4 K/mm3 (0.0-0.4); Eosinophils % (Auto) 2.9 % (0.0-4.3); Hemoglobin 11.5 gm/dl (10.1-14.3); Lymphocytes # (Auto) 3.7 K/mm3 (1.2-5.4); Lymphocytes % (Auto) 30.4 % (13.4-35.0); Mean Corpuscular HGB Conc 32 % (30-34); Mean Corpuscular Volume 87 fl (79-97); Monocytes # (Auto) 0.8 K/mm3 (0.0-0.8); Monocytes % (Auto) 6.5 % (0.0-7.3); Platelet Count 264 K/mm3 (140-440); Red Blood Count 4.16 M/mm3 (3.65-5.03); Red Cell Distribution Width 15.9 % (13.2-15.2)
[2021-11-21 01:40] LABS: Bacteria,Urine 1+ /HPF (Negative)
[2021-11-21 01:42] LABS: Color,Urine Yellow (Yellow)
[2021-11-21 01:52] LABS: Alanine Aminotransferase 29 units/L (7-56); Blood Urea Nitrogen 13 mg/dL (7-17); Calcium 8.8 mg/dL (8.4-10.2); Hemolysis Index 6
[2021-11-21 02:16] LABS: BUN/Creatinine Ratio 26
[2021-11-21] MEDS ORDERED: LIDOCAINE-MPF (1%) 10 MG/1 ML VIAL 5 ML INFILTRATI ONE (02:36)
--- NOTE | 2021-11-21 03:26 | Ultrasound Report ---
US OB <= 14 weeks fetus INDICATION / CLINICAL INFORMATION: abdominal pain COMPARISON: Limited OB ultrasound 07/01/2017 TECHNIQUE: Using a transcutaneous probe, multiple grayscale, color Doppler, and spectral Doppler imag es of the uterus and fetus were captured and stored. FINDINGS: Uterus measures 10.2 x 5.2 x 5.6 cm. Endometrium is thickened measuring 11.6 mm. A single intrauterin e gestational sac is demonstrated without evidence of pole or yolk sac. Based on mean gestation al sac diameter of 6.2 mm, the estimated gestational age is 5 weeks 2 days, EDC 07/22/2022. Clinical history gestational age based on LMP of 10/13/2021 is 5 weeks 4 days. The right ovary measures 1.8 x 1.1 x 1.7 cm and is otherwise normal in appearance. Left ovary measures 3.2 x 1.8 x 1.9 cm and is otherwise normal in appearance. No free fluid or adnexal masses are demonstrated. IMPRESSION: 1. Single intrauterine gestational sac without identifiable pole or yolk sac. Short-term ultras ound follow-up and/or surveillance of serum beta-hCG is recommended. Signer Name: Nirmal De Oliveira II, MD Signed: 11/21/2021 3:22 AM Workstation Name: [id number]
--- NOTE | 2021-11-21 03:32 | Emergency Department Report ---
ED Abdominal Pain HPI - General Chief Complaint: Abdominal Pain Stated Complaint: ABD PAIN Source: patient Mode of arrival: Ambulatory Limitations: No Limitations - History of Present Illness Initial Comments: Patient is a A0 26-year-old female who is approximately 5 weeks gestation and who has a past medical history of hypertension and morbid obesity presents to the ED with complaint of acute onset persistent diffuse lower abdominal pain for the last 2 days. Patient states that the pain has been constant and persistent. Patient denies vaginal bleeding, vaginal discharge, dysuria, urinary frequency and urgency, low back pain, chest pain, shortness of breath, fever, chills, change in vision or headache. MD Complaint: abdominal pain (lower abdominal pain), other (approximately 5 weeks gestation) -: Gradual, days(s) (2) Location: periumbilical, LLQ, RLQ, suprapubic Radiation: none Migration to: no migration Severity scale (0 -10): 7 Quality: cramping, sharp Improves With: nothing Worsens With: nothing Associated Symptoms: denies other symptoms, nausea, anorexia. denies: vomiting, diarrhea, fever, chills, constipation, dysuria, hematemesis, hematochezia, melena, hematuria, syncope, other - Related Data LMP Date: 09/26/21 Home Medications Medication Instructions Recorded Confirmed Last Taken Aspirin [Aspirin BABY CHEW TAB] 81 mg PO DAILY 08/12/17 08/12/17 08/11/17 08:00 1 Labetalol HCl 100 tab PO BID 08/12/17 08/12/17 08/11/17 08:00 100 TAB Previous Rx's Medication Instructions Recorded Last Taken Type Acetaminophen [Tylenol] 500 mg PO Q6HR PRN #30 tablet 11/21/21 Unknown Rx Dicyclomine [Bentyl] 20 mg PO Q6H PRN #30 tablet 11/21/21 Unknown Rx Vit-Fe Fumar-FA [ 1 each PO QDAY #60 tablet 11/21/21 Unknown Rx Vitamin] cephALEXin [Keflex] 500 mg PO Q6HR #40 capsule 11/21/21 Unknown Rx Allergies Allergy/AdvReac Type Severity Reaction Status Date / Time No Known Allergies Allergy Verified 08/23/14 14:08 ED Review of Systems ROS: Stated complaint: ABD PAIN Other details as noted in HPI Constitutional: denies: chills, fever Eyes: denies: eye pain, eye discharge, vision change ENT: denies: ear pain, throat pain, dental pain, hearing loss, epistaxis, congestion Respiratory: denies: cough, shortness of breath, wheezing Cardiovascular: denies: chest pain, palpitations Endocrine: no symptoms reported Gastrointestinal: abdominal pain. denies: nausea, vomiting, diarrhea Genitourinary: denies: urgency, dysuria, discharge Musculoskeletal: denies: back pain, joint swelling, arthralgia Skin: denies: rash, lesions Neurological: denies: headache, weakness, paresthesias Psychiatric: denies: anxiety, depression Hematological/Lymphatic: denies: easy bleeding, easy bruising ED Past Medical Hx - Past Medical History Hx Hypertension: Yes Hx Heart Attack/AMI: No Hx Congestive Heart Failure: No Hx Diabetes: No Hx Deep Vein Thrombosis: No Hx Liver Disease: No Hx Renal Disease: No Hx Sickle Cell Disease: No Hx Seizures: No Hx Asthma: No Hx COPD: No Hx HIV: Yes Additional medical history: Vaginal delivery x 6 - Social History Smoking Status: Unknown if ever smoked - Medications Home Medications: Home Medications Medication Instructions Recorded Confirmed Last Taken Type Aspirin [Aspirin BABY CHEW TAB] 81 mg PO DAILY 08/12/17 08/12/17 08/11/17 08:00 History 1 Labetalol HCl 100 tab PO BID 08/12/17 08/12/17 08/11/17 08:00 History 100 TAB Acetaminophen [Tylenol] 500 mg PO Q6HR PRN #30 tablet 11/21/21 Unknown Rx Dicyclomine [Bentyl] 20 mg PO Q6H PRN #30 tablet 11/21/21 Unknown Rx Vit-Fe Fumar-FA [ 1 each PO QDAY #60 tablet 11/21/21 Unknown Rx Vitamin] cephALEXin [Keflex] 500 mg PO Q6HR #40 capsule 11/21/21 Unknown Rx ED Physical Exam - General Limitations: No Limitations General appearance: alert, in no apparent distress - Head Head exam: Present: atraumatic, normocephalic, normal inspection - Eye Eye exam: Present: normal appearance, PERRL, EOMI Pupils: Present: normal accommodation - ENT ENT exam: Present: normal exam, normal orophraynx, mucous membranes moist, TM's normal bilaterally, normal external ear exam - Neck Neck exam: Present: normal inspection, full ROM. Absent: tenderness - Respiratory Respiratory exam: Present: normal lung sounds bilaterally. Absent: respiratory distress, wheezes, rales, rhonchi, stridor, chest wall tenderness, decreased breath sounds, prolonged expiratory - Cardiovascular Cardiovascular Exam: Present: regular rate, normal rhythm, normal heart sounds. Absent: systolic murmur, diastolic murmur, rubs, gallop - GI/Abdominal GI/Abdominal exam: Present: soft, tenderness (palpable lower abdominal tenderness), normal bowel sounds. Absent: guarding, rebound, rigid, hyperactive bowel sounds, hypoactive bowel sounds, organomegaly - Extremities Exam Extremities exam: Present: normal inspection, full ROM, normal capillary refill. Absent: tenderness - Back Exam Back exam: Present: normal inspection, full ROM. Absent: tenderness, CVA tenderness (R), CVA tenderness (L), muscle spasm, paraspinal tenderness, vertebral tenderness - Neurological Exam Neurological exam: Present: alert, oriented X3, CN II-XII intact, normal gait, reflexes normal - Psychiatric Psychiatric exam: Present: normal affect, normal mood - Skin Skin exam: Present: warm, dry, intact, normal color. Absent: rash ED Course Vital Signs 11/20/21 22:23 Temperature 97.8 F Pulse Rate 89 Respiratory 18 Rate Blood Pressure 148/78 [Left] O2 Sat by Pulse 98 Oximetry ED Medical Decision Making - Lab Data Result diagrams: 11/21/21 01:12 11/21/21 01:12 - Radiology Data Radiology results: report reviewed, image reviewed [facility] [address] [place] [address] Ultrasound Report Signed Patient: KATHY LOPEZ MR#: [id number] : 1995 Acct:[id number] Age/Sex: 26 / F ADM Date: 11/20/21 Loc: ED Attending Dr: Ordering Physician: HAFSA ANAYA Date of Service: 11/21/21 Procedure(s): US OB <= 14 weeks fetus Accession Number(s): [id number] cc: HAFSA ANAYA US OB <= 14 weeks fetus INDICATION / CLINICAL INFORMATION: abdominal pain COMPARISON: Limited OB ultrasound 07/01/2017 TECHNIQUE: Using a transcutaneous probe, multiple grayscale, color Doppler, and spectral Doppler images of the uterus and fetus were captured and stored. FINDINGS: Uterus measures 10.2 x 5.2 x 5.6 cm. Endometrium is thickened measuring 11.6 mm. A single intrauterine gestational sac is demonstrated without evidence of pole or yolk sac. Based on mean gestational sac diameter of 6.2 mm, the estimated gestational age is 5 weeks 2 days, EDC 07/22/2022. Clinical history gestational age based on LMP of 10/13/2021 is 5 weeks 4 days. The right ovary measures 1.8 x 1.1 x 1.7 cm and is otherwise normal in appearance. Left ovary measures 3.2 x 1.8 x 1.9 cm and is otherwise normal in appearance. No free fluid or adnexal masses are demonstrated. IMPRESSION: 1. Single intrauterine gestational sac without identifiable pole or yolk sac. Short-term ultrasound follow-up and/or surveillance of serum beta-hCG is recommended. Signer Name: Marcio Goldsmith II, MD Signed: 11/21/2021 3:22 AM Workstation Name: [id number] Transcribed By: OSCAR Dictated By: MARCIO GOLDSMITH II, MD Electronically Authenticated By: MARCIO GOLDSMITH II, MD Signed Date/Time: 11/21/21321 DD/ 8 TD/TT: Print - Medical Decision Making This is a A0 26-year-old female who is approximately 5 weeks gest ation and who has a past medical history of hypertension and morbid obesity presents to the ED with complaint of acute onset persistent diffuse lower abdominal pain for the last 2 days. Patient states that the pain has been constant and persistent. In the ED, patient is alert and oriented x3 and is not in any distress. Patient is hemodynamically stable. Lab test results were reviewed and showed hCG quant of 1925, and significant urinary tract infection in urinalysis. The transvaginal ultrasound showed a single intrauterine gestational sac without identifiable pole or yolk sac, and is approximately 5 weeks and 4 days. Patient was treated for pain in the ED and also received Rocephin 1 g intramuscular injection. Patient was discharged home on medications and advised to follow-up with [employer] physician in 7 to 10 days for reevaluation. Patient was advised to return to the ED immediately if symptoms get worse. - Differential Diagnosis UTI; Ovarian cyst; uterine fibroids; ectopic Critical care attestation.: If time is entered above; I have spent that time in minutes in the direct care of this critically ill patient, excluding procedure time. ED Disposition Clinical Impression: Abdominal pain during in first trimester, Acute urinary tract infection Disposition: 01 HOME / SELF CARE / HOMELESS Is pt being admited?: No Does the pt Need Aspirin: No Condition: Stable Instructions: Abdominal Pain (ED), Abdominal Pain During , [id number], Urinary Tract Infection, Adult, [id number] Additional Instructions: The lab test results were reviewed and are all nonactionable except for urinalysis that showed significant urinary tract infection. The hCG quant was 1925. The transvaginal ultrasound showed a single intrauterine gestational sac without identifiable pole or yolk sac, and is approximately 5 weeks and 4 days. Short-term ultrasound follow-up and/or surveillance of serum beta-hCG is recommended. Therefore take medication with food, drink plenty of fluids, follow-up with your primary care physician in 7 to 10 days for reevaluation. Return to the ED immediately if symptoms get worse. Prescriptions: Acetaminophen [Tylenol] 500 mg PO Q6HR PRN #30 tablet PRN Reason: Pain , Severe (7-10) Dicyclomine [Bentyl] 20 mg PO Q6H PRN #30 tablet PRN Reason: abdominal pain cephALEXin [Keflex] 500 mg PO Q6HR #40 capsule Vit-Fe Fumar-FA [ Vitamin] 1 each PO QDAY #60 tablet Referrals: CALLI SU MD [Primary Care Provider] - 3-5 Days Time of Disposition: 03:34 Print Language: NEPALESE
[2021-11-21 05:37] VITALS: BP 156/82
== END 2021-11-21 05:37 | disposition home or self-care (01) ==
LOC: ED 21:55
DX: O26.891 Other specified pregnancy related conditions, first trimester (principal); R10.9 Unspecified abdominal pain; O23.41 Unspecified infection of urinary tract in pregnancy, first trimester; N39.0 Urinary tract infection, site not specified; Z3A.01 Less than 8 weeks gestation of pregnancy; I10 Essential (primary) hypertension
CPT/HCPCS: 36415; 76801; 80053; 81001; 83690; 84702; 85025; 87086; 96372; 99284; J0696; J3490